=== PATIENT | male | born 1960 | race Caucasian/White ===

== ENCOUNTER 2020-11-26 09:01 | Inpatient (IN) | payer BC ==
[~2020-11-26] VITALS: Ht 180.3 cm; Wt 86.4 kg
[2020-11-26 10:14] LABS: BASOPHILS % (AUTO) 0.6 % (0-1); EOSINOPHILS # (AUTO) 0.1 X10'3 (0-0.9); EOSINOPHILS % (AUTO) 2.3 % (0-6); HEMATOCRIT 52.1 % (42.0-52.0); HEMOGLOBIN 17.8 g/dl (14.0-17.9); LYMPHOCYTES # (AUTO) 1.1 X10'3 (1.1-4.8); LYMPHOCYTES % (AUTO) 19.4 % (21-51); MEAN CORPUSCULAR HEMOGLOBIN 31.7 PG (27.0-31.0); MEAN CORPUSCULAR HGB CONC 34.3 g/dL (33.0-36.5); MEAN CORPUSCULAR VOLUME 92.6 FL (78-98); MONOCYTES # (AUTO) 0.5 X10'3 (0-0.9); MONOCYTES % (AUTO) 9.7 % (2-12); NEUTROPHILS # (AUTO) 3.8 X10'3 (1.8-7.7); PLATELET COUNT 199 X10'3 (140-440); RED BLOOD COUNT 5.62 X10'6 (4.70-6.10); RED CELL DISTRIBUTION WIDTH 13.6 % (11.5-14.5); WHITE BLOOD COUNT 5.6 X10'3 (4.5-11.0)
[2020-11-26 10:23] LABS: ALANINE AMINOTRANSFERASE 39 U/L (12-78); ALBUMIN 4.3 G/DL (3.4-5.0); ALBUMIN/GLOBULIN RATIO 1.1 (1.1-1.5); ALKALINE PHOSPHATASE 93 IU/L (46-116); ANION GAP 7 (8-16); ASPARTATE AMINO TRANSFERASE 26 U/L (10-37); BILIRUBIN,TOTAL 0.7 MG/DL (0.1-1.0); BLOOD UREA NITROGEN 14 MG/DL (7-18); BUN/CREATININE RATIO 14.1 (5.4-32.0); CALCIUM 9.9 MG/DL (8.5-10.1); CHLORIDE 106 MMOL/L (99-107); CREATININE 0.99 MG/DL (0.60-1.10); GLUCOSE 125 MG/DL (70-104); POTASSIUM 4.3 MMOL/L (3.5-5.1); SODIUM 142 MMOL/L (135-145); TOTAL CARBON DIOXIDE 29.5 MMOL/L (24-32); TOTAL PROTEIN 8.3 G/DL (6.4-8.2); eGFR 77 ML/MIN
[2020-11-26] MEDS ORDERED: diltiazem 5mg/ml 5ml inj. IV ONE (10:35)
[2020-11-26] MEDS ORDERED: normal saline 1000ML IV soln IVB ONE (10:35)
[2020-11-26] MEDS ORDERED: diltiazem-NS 100mg/100ml 100 ML IV PRN (11:20)
[2020-11-26] MEDS ORDERED: LORazepam 2 mg/ml vial IV ONE (12:20)
[2020-11-26] MEDS ORDERED: ASPI-611 PO (12:27)
[2020-11-26] MEDS ORDERED: LISI-604 PO (12:27)
[2020-11-26 12:40] LABS: PARTIAL THROMBOPLASTIN TIME 29 SECONDS (22-32)
[2020-11-26] MEDS ORDERED: magnesium Cl slow-release 64mg tablet PO PRN (13:05)
[2020-11-26] MEDS ORDERED: potassium Cl 20 mEq SR tablet PO PRN ×2 (13:05)
[2020-11-26] MEDS ORDERED: acetaminophen 325mg tablet PO PRN (13:05)
[2020-11-26] MEDS ORDERED: ondansetron/PF 4mg/2ml inj IV PRN (13:05)
[2020-11-26] MEDS ORDERED: potassium Cl 40MEQ/1/2NS 520ml 520 ML IV PRN ×2 (13:05)
[2020-11-26] MEDS ORDERED: magnesium 4gm in 100ml NS 100 ML IV PRN (13:05)
[2020-11-26] MEDS ORDERED: magnesium 2GM in 50ml NS 50 ML IV PRN (13:05)
[2020-11-26] MEDS: lisinopril 5mg tablet PO SCH (13:22)
--- NOTE | 2020-11-26 17:20 | NUR ---
Patient arrived to [facility]. Transferred from [facility] to hospital bed. Patient oriented to room and to call light. Vital signs: T 98.7, HR 110, O2 99% on RA, RR 24, BP 126/84. Patient offers no complaints. Cardizem gtt @ 15 mg hour.
[2020-11-26 18:00] VITALS: BP 126/84
--- NOTE | 2020-11-26 18:01 | NUR ---
Per Dr. Yun hancock gtt @ 15 mL/hour.
[2020-11-26] MEDS: diltiazem-NS 100mg/100ml 100 ML IV SCH (18:15)
--- NOTE | 2020-11-26 18:15 | NUR ---
Patient in room PCU 3013. I have received report from Alexa LARA/Sirena LARA and had the opportunity to ask questions and assume patient care.
--- NOTE | 2020-11-26 18:31 | NUR ---
Problems reprioritized. Patient report given, questions answered & plan of care reviewed with MARCO Banks. Patient stable at transfer of care. Cardizem gtt @ 15 mL/hour.
[2020-11-26 20:00] VITALS: BP 126/89
[2020-11-26] MEDS: K and/or MAG REPLACEMENT MC SCH (20:00)
[2020-11-26 22:00] VITALS: BP 119/75
[2020-11-27] VITALS: BP 121/66
[2020-11-27] MEDS: diltiazem-NS 100mg/100ml 100 ML IV SCH (00:07)
--- NOTE | 2020-11-27 01:45 | NUR ---
Paged Dr. Michelle Messina 59M; dx afib RVR; patient's HR is sustaining in 50s and Cardizem is running at 15. Laura RN [phone] Dr. Martinez called back and ordered Cardizem to be decreased to 10.
[2020-11-27 02:00] VITALS: BP 138/89
--- NOTE | 2020-11-27 03:29 | NUR ---
Pt's HR continues to be in the mid 50s sinus kristi with Cardizem drip infusing at 10mg/hr. Notified MD about low HR and received order to decrease the drip to 5mg and page him again at 0500 to re-evaluate and possibly d/c the drip. Notified patient's primary RN and carried out MD orders
--- NOTE | 2020-11-27 05:12 | NUR ---
Aditi Messina 59M; Reji at 5 and heart rate sustaining in 50s. would you like to D/C Reji irene? Laura LARA [phone] Addendum: 11/27/20 at 0530 by Laura Ariza RN Dr. Michelle anderson
--- NOTE | 2020-11-27 06:11 | NUR ---
Problems reprioritized. Patient report given, questions answered & plan of care reviewed with Maribel LARA.
--- NOTE | 2020-11-27 06:13 | NUR ---
Patient in room PCU 3013. I have received report from Laura LARA and had the opportunity to ask questions and assume patient care.
[2020-11-27 07:00] VITALS: BP 127/81
[2020-11-27] MEDS ORDERED: aspirin 81mg tab.chew PO SCH (08:00)
[2020-11-27] MEDS: K and/or MAG REPLACEMENT MC SCH (08:00)
[2020-11-27 08:04] LABS: BASOPHILS % (AUTO) 0.5 % (0-1); EOSINOPHILS # (AUTO) 0.1 X10'3 (0-0.9); EOSINOPHILS % (AUTO) 1.7 % (0-6); HEMOGLOBIN 16.6 g/dl (14.0-17.9); LYMPHOCYTES # (AUTO) 1.2 X10'3 (1.1-4.8); LYMPHOCYTES % (AUTO) 20.6 % (21-51); MEAN CORPUSCULAR HEMOGLOBIN 31.8 PG (27.0-31.0); MEAN CORPUSCULAR HGB CONC 34.6 g/dL (33.0-36.5); MEAN CORPUSCULAR VOLUME 91.8 FL (78-98); MONOCYTES # (AUTO) 0.5 X10'3 (0-0.9); MONOCYTES % (AUTO) 8.5 % (2-12); NEUTROPHILS # (AUTO) 3.9 X10'3 (1.8-7.7); NEUTROPHILS % (AUTO) 68.7 % (42-75); PLATELET COUNT 192 X10'3 (140-440); RED BLOOD COUNT 5.23 X10'6 (4.70-6.10); RED CELL DISTRIBUTION WIDTH 13.7 % (11.5-14.5); WHITE BLOOD COUNT 5.7 X10'3 (4.5-11.0)
[2020-11-27 08:25] LABS: ALBUMIN 3.9 G/DL (3.4-5.0); ANION GAP 8 (8-16); BLOOD UREA NITROGEN 15 MG/DL (7-18); BUN/CREATININE RATIO 16.1 (5.4-32.0); CHLORIDE 105 MMOL/L (99-107); CHOL/HDL RATIO 2.9 (0.00-4.99); CHOLESTEROL 141 MG/DL (0-200); CREATININE 0.93 MG/DL (0.60-1.10); GLUCOSE 109 MG/DL (70-104); HDL CHOLESTEROL 48 MG/DL (35-60); LDL CHOLESTEROL 92 MG/DL (50-100); MAGNESIUM 2.2 MG/DL (1.5-2.4); POTASSIUM 4.1 MMOL/L (3.5-5.1); SODIUM 140 MMOL/L (135-145); TOTAL CARBON DIOXIDE 26.9 MMOL/L (24-32); TRIGLYCERIDES 41 MG/DL (20-135); eGFR 83 ML/MIN
[2020-11-27 09:18] VITALS: BP_SYST 129
[2020-11-27] MEDS: lisinopril 5mg tablet PO SCH (09:18)
[2020-11-27] MEDS ORDERED: APIX5TAB3 PO (12:12)
[2020-11-27] MEDS ORDERED: DILT30TA10 PO (12:19)
--- NOTE | 2020-11-27 13:49 | NUR ---
Patient was d/c to home. He was picked up by his son. PIV was removed with cannula intact. RX were sent to [facility]. DC instructions were reviewed with the patient and he verbalized understanding of instructions and warning signs and symptoms
== END 2020-11-27 12:54 | disposition home or self-care (01) | DRG 310 ==
LOC: ER 09:02 → ED HOLD 13:13 → PCU 3S 17:24
PROVIDERS: ADMIT Internal Medicine; ATTEND Internal Medicine
DX: I48.0 Paroxysmal atrial fibrillation (principal); F12.90 Cannabis use, unspecified, uncomplicated; F41.9 Anxiety disorder, unspecified; I10 Essential (primary) hypertension; Z86.718 Personal history of other venous thrombosis and embolism
CPT/HCPCS: 36415; 71045; 80048; 80053; 80061; 83735; 83880; 84484; 85025; 85610; 85730; 87081; 93005; 93306; 93308; 96374; 99285; G0378; J2060; J3490; J7030

== ENCOUNTER 2024-03-21 06:52 | Day surgery (SDC) | payer MEDICARE, BC ==
[2024-03-20 12:00] LABS: ALBUMIN 2.9 G/DL (3.4-5.0); ANION GAP 9 (8-16); BLOOD UREA NITROGEN 13 MG/DL (7-18); BUN/CREATININE RATIO 11.2 (10.0-20.0); CALCIUM 8.9 MG/DL (8.5-10.1); CHLORIDE 107 MMOL/L (99-107); CREATININE 1.16 MG/DL (0.60-1.10); GLUCOSE 97 MG/DL (70-104); POTASSIUM 4.3 MMOL/L (3.5-5.1); SODIUM 143 MMOL/L (135-145); TOTAL CARBON DIOXIDE 27.4 MMOL/L (24-32); eGFR 63 ML/MIN
[2024-03-20 12:02] LABS: BASOPHILS % (AUTO) 0.8 % (0-1); EOSINOPHILS # (AUTO) 0.3 X10'3 (0-0.9); EOSINOPHILS % (AUTO) 5.7 % (0-6); HEMATOCRIT 41.8 % (42.0-52.0); HEMOGLOBIN 13.9 g/dl (14.0-17.9); LYMPHOCYTES # (AUTO) 1.2 X10'3 (1.1-4.8); LYMPHOCYTES % (AUTO) 22.6 % (21-51); MEAN CORPUSCULAR HEMOGLOBIN 29.9 PG (27.0-31.0); MEAN CORPUSCULAR HGB CONC 33.2 g/dL (33.0-36.5); MEAN CORPUSCULAR VOLUME 90.2 FL (78-98); MEAN PLATELET VOLUME 8.3 FL (7.4-10.4); MONOCYTES # (AUTO) 0.5 X10'3 (0-0.9); MONOCYTES % (AUTO) 9.8 % (2-12); NEUTROPHILS # (AUTO) 3.3 X10'3 (1.8-7.7); NEUTROPHILS % (AUTO) 61.1 % (42-75); PLATELET COUNT 242 X10'3 (140-440); RED BLOOD COUNT 4.63 X10'6 (4.70-6.10); WHITE BLOOD COUNT 5.4 X10'3 (4.5-11.0)
[~2024-03-21] VITALS: Ht 185.4 cm; Wt 115.8 kg
[2024-03-21] VITALS (10 sets, daily range): BP systolic 94–162; BP diastolic 60–77; PULSE 69–88; RESP 14–19; TEMP 97.9; O2SAT 94–98
[~2024-03-21 06:52] MED LIST: APIX5TAB3 PO; DILT30TA10 PO; LISI5TAB22 PO
[2024-03-21] MEDS ORDERED: LAN0.125T PO (07:18)
[2024-03-21] MEDS ORDERED: APIX5TAB3 PO (07:18)
[2024-03-21] MEDS ORDERED: AMI200T PO (07:18)
[2024-03-21] MEDS ORDERED: CARV-50 PO (07:18)
[2024-03-21 07:58] LABS: INR 1.1 INR; PROTHROMBIN TIME 11.8 SECONDS (9.0-12.0)
[2024-03-21] MEDS ORDERED: atropine 0.1mg/ml 10ml syringe IV ONE (08:10)
[2024-03-21] MEDS ORDERED: amiodarone 150mg/dext, iso-os 100 ML IV ONE (08:10)
[2024-03-21] MEDS ORDERED: LORazepam 0.5 MG tablet PO ONE (08:10)
[2024-03-21] MEDS ORDERED: diphenhydrAMINE 25mg capsule PO ONE (08:10)
[2024-03-21] MEDS: normal saline 1000ml 1,000 ML IV SCH (08:27)
[2024-03-21] MEDS: MIDAZolam 1mg/ml 10ml vial IV ONE (09:34)
[2024-03-21] MEDS: fentaNYL/PF 50MCG/1 ML 2ML syringe IV ONE (09:34)
== END 2024-03-21 10:27 | disposition home or self-care (01) ==
LOC: SSTAY O 06:52
PROVIDERS: ATTEND Internal Medicine Cardiovascular Disease
DX: I48.0 Paroxysmal atrial fibrillation (principal); I10 Essential (primary) hypertension; G47.30 Sleep apnea, unspecified; E78.5 Hyperlipidemia, unspecified; Z98.890 Other specified postprocedural states; Z79.899 Other long term (current) drug therapy
CPT/HCPCS: 36415; 80048; 85025; 85610; 92960; 93005; J2250; J3010; J7030; A4620